=== PATIENT | female | born 1960 | race Caucasian/White ===

== ENCOUNTER 2023-07-16 10:43 | Day surgery (SDC) | payer BC ==
--- NOTE | 2023-07-15 09:05 | P.HPOR ---
History of Present Illness H&P Date: 07/15/23 Subjective: This is a 62 year old female that presents today for follow up evaluation regarding several year history of progressively worsening bilateral index finger pain, swelling, limited range of motion and weakness. She denies any injury or inciting event. She has noticed pain with pinch and grasp and is located at the tips of the index fingers. She has also noticed the size and swelling of the distal joints in her index fingers that have increased over the last year and are bothering her on a daily basis. She's tried Motrin with temporary and minimal relief. Physical Examination: LUE: AIN/PIN/Radial/Ulnar/Median motor intact. Radial/Ulnar/Median SILT. 2+/4 Radial/Ulnar pulses palpated. 5/5 APB, 5/5 FDI. Negative Finkelsteins, negative CMC grind, negative Durkan's compression. Heberden nodule present at index finger DIP joint. Tenderness palpation over DIP joints. RUE: AIN/PIN/Radial/Ulnar/Median motor intact. Radial/Ulnar/Median SILT. 2+/4 Radial/Ulnar pulses palpated. 5/5 APB, 5/5 FDI. Negative Finkelsteins, negative CMC grind, negative Durkan's compression. Heberden nodule present at index finger DIP joint.Tenderness palpation over DIP joints. Imaging: X-Rays of the left index finger reviewed from prior office visit 2V demonstrate advanced degenerative changes that the DIP joint. X-Rays of the right index finger reviewed from prior office visit 2V demonstrate advanced degenerative changes that the DIP joint. Impression: 1.) B/L index finger DIP joint arthritis, severe. Plan: Diagnosis and treatment options were discussed with the patient. We discussed conservative treatment consisting of continued anti-inflammatories versus surgery, which would include DIP joint arthrodesis. Due to her continued pain symptoms, she wishes to pursue surgical intervention with DIP joint arthrodesis on the right index finger followed by the left index finger 6 weeks later. We discussed this would address the pain component of her symptoms and would result in loss of DIP joint flexion and she expressed understanding. Risks and benefits of surgery including bleeding, infection, damage to surrounding tissue, need for further surgery, residual numbness, nonunion were discussed and the patient wished to go forward with surgery. The patient was agreeable with this plan. -Yoandy Ozuna DO Orthopedic Hand/Upper Extremity Surgeon Past Medical History Past Medical History: Osteoarthritis (OA) History of Any Multi-Drug Resistant Organisms: None Reported Past Surgical History: Cholecystectomy, Joint Replacement, Tonsillectomy Additional Past Surgical History / Comment(s): BILAT ARCADIO, LT FOOT SX, COLONOSCOPY Past Anesthesia/Blood Transfusion Reactions: Postoperative Nausea & Vomiting (PONV) Smoking Status: Never smoker - Past Family History Father Family Medical History: Cancer Medications and Allergies Home Medications Medication Instructions Recorded Confirmed Type Acetaminophen [Tylenol Extra 1,000 mg PO Q6HR PRN 07/14/23 07/14/23 History Strength] Estradiol Cream [Estrace Cream 1 gm VAGINAL DIRECTED 07/14/23 07/14/23 History 0.01%] Ibuprofen [Motrin Ib] 600 mg PO Q8H PRN 07/14/23 07/14/23 History Multivit with Calcium,Iron,Min 1 each PO DAILY 07/14/23 07/14/23 History [Women's Multivitamin] Allergies Allergy/AdvReac Type Severity Reaction Status Date / Time Penicillins Allergy Rash/Hives Verified 07/14/23 09:15 Physical Examination Osteopathic Statement: *. No significant issues noted on an osteopathic structural exam other than those noted in the History and Physical/Consult.
[~2023-07-16 10:43] MED LIST: LACTATED RINGERS 1,000 ML IV SCH; ONDANSETRON 4 MG/2 ML VIAL IVP ONE; fentaNYL (PF) 50 MCG/ML 2 ML AMP IV PRN
[2023-07-16] MEDS ORDERED: SCOPOLAMINE 1 MG/72 HR PATCH TRANSDERM ONE (11:30)
[2023-07-16] MEDS ORDERED: DEXAMETHASONE SOD PHOSPHATE 4 MG/ML 1 ML VIAL IVP ONE (11:30)
[2023-07-16] MEDS ORDERED: LIDOCAINE 1% INJ 10MG/ML (20 ML MDV) ONE (12:06)
[2023-07-16] MEDS ORDERED: MIDAZOLAM 2 MG/2 ML VIAL ONE (12:06)
[2023-07-16] MEDS ORDERED: HYDROmorphone (PF) 1 MG/ML ONE (12:06)
[2023-07-16] MEDS ORDERED: fentaNYL (PF) 50 MCG/ML 2 ML AMP ONE (12:06)
[2023-07-16] MEDS ORDERED: PROPOFOL 10 MG/ML 20 ML VIAL IV ONE (12:06)
[2023-07-16] MEDS ORDERED: LIDOCAINE 2% INJ 20 MG/ML SQ ONE (12:20)
[2023-07-16] MEDS ORDERED: BUPIVACAINE (PF) 0.5% 30 ML VIAL SQ ONE (12:20)
--- NOTE | 2023-07-16 15:24 | P.OP ---
Date of Procedure: 07/16/23 Preoperative Diagnosis: Right index finger DIP joint arthritis Postoperative Diagnosis: Right index finger DIP joint arthritis Procedure(s) Performed: Right index finger DIP joint arthrodesis Implants: Arthrex 2.5mm Micro headless compression screw FT 30mm Anesthesia: EL Surgeon: Yoandy Ozuna Pharmaceutical Operator #1: Dallas Wolfe Estimated Blood Loss (ml): 0 Pathology: none sent Condition: stable Disposition: PACU Description of Procedure: This is a 63 year old female with right index finger DIP joint arthritis that has failed conservative treatment and presents today for a DIP joint arthrodesis. Risks and benefits of surgery were discussed with the patient including bleeding, damage to surrounding tissue, infection, need for further surgery as well as risks of anesthesia including pulmonary embolism and even and the patient wished to proceed with surgical intervention. The patient was seen in the pre-operative area by myself. Consent and H&P were completed and updated. The correct extremity was marked in the pre-operative area by myself and all other questions were answered. Operative Narrative: The patient was brought to the operating room by the department of anesthesia. They remained on the portable stretcher and a rolling hand table was brought to the side of the operative extremity. Pre-operative time out was performed indicating the correct patient, procedure and laterality. All in the room agreed. Pre-operative antibiotics were given prior to skin incision. The patient was then drifted off to sleep by the department of anesthesia. Digital block was performed with 7cc's of 0.5% Lidocaine and 1% lidocaine in a 50:50 mixture. A nonsterile tourniquet was then applied to the operative extremity and the right upper extremity was then prepped and draped in normal sterile fashion. The operative extremity was the exsanguinated with an esmarch bandage and the tourniquet was inflated to 250mmHg. 15 blade scalpel was utilized to make a H type incision over the DIP joint of the right index finger. Sharp dissection was taken down though subcutaneous tissues. Extensor tendon was identified and transversely incised. The Joint was then hyper flexed and osteophytes where taken down with rongeur. There was complete obliteration of the articular surface with extensive erosion of the head of the proximal phalanx. Remaining cartilage was removed with a rongeur down to cancellous bone. A guidepin was then inserted antegrade across the DIP joint with the joint held in extension. Appropriate joint alignment was appreciated on AP and lateral views. The screw length was measured at 30mm and the guide pin was then driven into the proximal cortex. Over-drill was then performed and a Arthrex micro 2.5 headless compression screw was inserted with good bone purchase. Lateral view revealed intra-medullary placement and final seating of the screw was flush to distal phalanx tip with good volar pulp cushion present at tip of the finger. The wound was then closed with 4-0 chromic suture and a soft dressing was placed consisting of adaptic, 4x4s and kerlix wrap. Tourniquet was let down and the hand had immediate perfusion. The patient was then woken by the department of anesthesia and transferred to PACU in stable condition. Dallas YIN was present for the case to assist in hardware placement and other valente portions of the case. Yoandy Ozuna D.O. Orthopedic Hand/Upper Extremity Surgeon
== END 2023-07-16 14:36 | disposition home or self-care (01) ==
LOC: OR 10:43
PROVIDERS: ATTEND Orthopaedic Surgery Hand Surgery
DX: M19.041 Primary osteoarthritis, right hand (principal); J45.909 Unspecified asthma, uncomplicated; Z79.899 Other long term (current) drug therapy; Z88.0 Allergy status to penicillin; Z90.49 Acquired absence of other specified parts of digestive tract; Z98.890 Other specified postprocedural states; Z80.9 Family history of malignant neoplasm, unspecified
CPT/HCPCS: 26860; C1713; J2001 ×2; J2250; J1100; J0690; J2405; J3010; J1170; J2704; J0665

== ENCOUNTER 2023-09-03 08:45 | Day surgery (SDC) | payer BC ==
[2023-09-02 08:34] VITALS: BMI 31.9
--- NOTE | 2023-09-02 12:56 | P.HPOR ---
History of Present Illness H&P Date: 09/02/23 Subjective: This is a 62 year old female that presents today for follow up evaluation regarding several year history of progressively worsening bilateral index finger pain, swelling, limited range of motion and weakness. She denies any injury or inciting event. She has noticed pain with pinch and grasp and is located at the tips of the index fingers. She has also noticed the size and swelling of the distal joints in her index fingers that have increased over the last year and are bothering her on a daily basis. She's tried Motrin with temporary and minimal relief. Physical Examination: LUE: AIN/PIN/Radial/Ulnar/Median motor intact. Radial/Ulnar/Median SILT. 2+/4 Radial/Ulnar pulses palpated. 5/5 APB, 5/5 FDI. Negative Finkelsteins, negative CMC grind, negative Durkan's compression. Heberden nodule present at index finger DIP joint. Tenderness palpation over DIP joints. RUE: AIN/PIN/Radial/Ulnar/Median motor intact. Radial/Ulnar/Median SILT. 2+/4 Radial/Ulnar pulses palpated. 5/5 APB, 5/5 FDI. Negative Finkelsteins, negative CMC grind, negative Durkan's compression. Heberden nodule present at index finger DIP joint.Tenderness palpation over DIP joints. Imaging: X-Rays of the left index finger reviewed from prior office visit 2V demonstrate advanced degenerative changes that the DIP joint. X-Rays of the right index finger reviewed from prior office visit 2V demon strate advanced degenerative changes that the DIP joint. Impression: 1.) B/L index finger DIP joint arthritis, severe. Plan: Diagnosis and treatment options were discussed with the patient. We discussed conservative treatment consisting of continued anti-inflammatories versus surgery, which would include DIP joint arthrodesis. Due to her continued pain symptoms, she wishes to pursue surgical intervention with DIP joint arthrodesis on the left index finger. We discussed this would address the pain component of her symptoms and would result in loss of DIP joint flexion and she expressed understanding. Risks and benefits of surgery including bleeding, infection, damage to surrounding tissue, need for further surgery, residual numbness, nonunion were discussed and the patient wished to go forward with surgery. The patient was agreeable with this plan. -Yoandy Mc DO Orthopedic Hand/Upper Extremity Surgeon Past Medical History Past Medical History: Osteoarthritis (OA) Additional Past Medical History / Comment(s): CURRENTLY ON ANTIBIOTICS SINCE 09/01/23 FOR UTI-PT STATES THAT DR. MC IS AWARE History of Any Multi-Drug Resistant Organisms: None Reported Past Surgical History: Cholecystectomy, Hysterectomy, Joint Replacement, Orthopedic Surgery, Tonsillectomy Additional Past Surgical History / Comment(s): BILAT ARCADIO, LT FOOT SX, COLONOSCOPY, RT INDEX FINGER, Past Anesthesia/Blood Transfusion Reactions: Postoperative Nausea & Vomiting (PONV) Smoking Status: Never smoker - Past Family History Father Family Medical History: Cancer Additional Family Medical History / Comment(s): LUNG Medications and Allergies Home Medications Medication Instructions Recorded Confirmed Type Acetaminophen [Tylenol Extra 1,000 mg PO Q6HR PRN 07/14/23 09/02/23 History Strength] Estradiol Cream [Estrace Cream 1 gm VAGINAL DIRECTED 07/14/23 09/02/23 History 0.01%] Ibuprofen [Motrin Ib] 600 mg PO Q8H PRN 07/14/23 09/02/23 History Multivit with Calcium,Iron,Min 1 each PO DAILY 07/14/23 09/02/23 History [Women's Multivitamin] HYDROcodone/APAP 5-325MG [Parkman 1 tab PO Q4HR PRN 3 Days #18 tab 07/16/23 09/02/23 Rx 5-325] Cephalexin [Keflex] 500 mg PO Q12HR 09/02/23 09/02/23 History Allergies Allergy/AdvReac Type Severity Reaction Status Date / Time Penicillins Allergy Rash/Hives Verified 09/02/23 08:18 Physical Examination Osteopathic Statement: *. No significant issues noted on an osteopathic structural exam other than those noted in the History and Physical/Consult.
[~2023-09-03 08:45] MED LIST changes: +LIDOCAINE 1% (10MG/ML) FOR IV START INTRADERMA PRN; -ONDANSETRON 4 MG/2 ML VIAL IVP ONE; -fentaNYL (PF) 50 MCG/ML 2 ML AMP IV PRN
[2023-09-03] MEDS: LACTATED RINGERS 1,000 ML IV ONE ×2 (09:23→11:03)
[2023-09-03] MEDS: DEXAMETHASONE SOD PHOSPHATE 4 MG/ML 1 ML VIAL IVP ONE (09:31)
[2023-09-03] MEDS: ONDANSETRON 4 MG/2 ML VIAL IVP PRN (09:31)
[2023-09-03] MEDS: SCOPOLAMINE 1 MG/72 HR PATCH TRANSDERM ONE (09:40)
[2023-09-03] MEDS ORDERED: PROPOFOL 10 MG/ML 20 ML VIAL IV ONE (10:01)
[2023-09-03] MEDS ORDERED: KETAMINE HCL IN 0.9 % NACL 50 MG/5 ML SYRINGE ONE (10:01)
[2023-09-03] MEDS ORDERED: MIDAZOLAM 2 MG/2 ML VIAL ONE (10:01)
[2023-09-03] MEDS ORDERED: fentaNYL (PF) 50 MCG/ML 2 ML AMP ONE (10:01)
[2023-09-03] MEDS: BUPIVACAINE (PF) 0.5% 30 ML VIAL SQ ONE (10:06)
[2023-09-03] MEDS: LIDOCAINE 2% INJ 20 MG/ML SQ ONE (10:06)
--- NOTE | 2023-09-03 11:22 | P.OP ---
Date of Procedure: 09/03/23 Preoperative Diagnosis: Left index finger DIP joint arthritis Postoperative Diagnosis: Left index finger DIP joint arthritis Procedure(s) Performed: Left index finger DIP joint arthrodesis Implants: Arthrex micro headless compression screw FT 28mm length Anesthesia: MAC Surgeon: Yoandy Ozuna Veneer Jointer Returner #1: Dallas Wolfe Estimated Blood Loss (ml): 0 Pathology: none sent Condition: stable Disposition: PACU Description of Procedure: This is a 63 year old female with left index finger DIP joint arthritis that has failed conservative treatment and presents today for a DIP joint arthrodesis. Risks and benefits of surgery were discussed with the patient including bleeding, damage to surrounding tissue, infection, need for further surgery as well as risks of anesthesia including pulmonary embolism and even and the patient wished to proceed with surgical intervention. The patient was seen in the pre-operative area by myself. Consent and H&P were completed and updated. The correct extremity was marked in the pre-operative area by myself and all other questions were answered. Operative Narrative: The patient was brought to the operating room by the department of anesthesia. They remained on the portable stretcher and a rolling hand table was brought to the side of the operative extremity. Pre-operative time out was performed indicating the correct patient, procedure and laterality. All in the room agreed. Pre-operative antibiotics were given prior to skin incision. The patient was then drifted off to sleep by the department of anesthesia. Digital block was performed with 7cc's of 0.5% Lidocaine and 1% lidocaine in a 50:50 mixture. A nonsterile tourniquet was then applied to the operative extremity and the left upper extremity was then prepped and draped in normal sterile fashion. The operative extremity was the exsanguinated with an esmarch bandage and the tourniquet was inflated to 250mmHg. 15 blade scalpel was utilized to make a H type incision over the DIP joint of the left index finger. Sharp dissection was taken down though subcutaneous tissues. Extensor tendon was identified and transversely incised. The Joint was then hyper flexed and osteophytes where taken down with rongeur. There was complete obliteration of the articular surface with extensive erosion of the head of the proximal phalanx. Cartilage was removed with a rongeur to cancellous bone. A guidepin was then inserted antegrade across the DIP joint with the joint held in extension. Appropriate joint alignment was appreciated on AP and lateral views. The screw length was measured at 28mm and the guide pin was then driven into the proximal cortex. Over-drill was then performed and a Arthrex micro 2.5 headless compression screw was inserted with good bone purchase. Lateral view revealed intra-medullary placement and final seating of the screw was subchondral in the distal phalanx tip. The wound was then closed with 4-0 nylon suture and a soft dressing was placed consisting of adaptic, 4x4s and loosely applied coban. Tourniquet was let down and the hand had immediate perfusion. The patient was then woken by the department of anesthesia and transferred to PACU in stable condition. Dallas YIN was present for the case to assist in hardware placement and other valente portions of the case. Yoandy Ozuna D.O. Orthopedic Hand/Upper Extremity Surgeon
[2023-09-03 11:37] VITALS: RESP 16; TEMP 98
[2023-09-03 12:47] VITALS: BP 135/80; PULSE 64
== END 2023-09-03 13:02 | disposition home or self-care (01) ==
LOC: OR 08:45
PROVIDERS: ATTEND Orthopaedic Surgery Hand Surgery
DX: M19.042 Primary osteoarthritis, left hand (principal); Z88.0 Allergy status to penicillin; Z90.710 Acquired absence of both cervix and uterus; Z79.899 Other long term (current) drug therapy; Z98.890 Other specified postprocedural states
CPT/HCPCS: 26860; C1713; J2001; J2250; J1100; J0690; J2405; J3010; J2704; J0665